=== PATIENT | male | born 1965 ===

== ENCOUNTER 2020-07-13 13:03 | Emergency (ER) | payer SELFPAY ==
--- NOTE | 2020-07-13 13:45 | Event Note ---
ED Screening Note ED Screening Note: CO WEAKNESS/FATIGUE/WEIGHT LOSS SINCE HAVING COVID IN MAY NO CP NO SOB PMH HTN This initial assessment/diagnostic orders/clinical plan/treatment(s) is/are subject to change based on patients health status, clinical progression and re- assessment by fellow clinical providers in the ED. Further treatment and workup at subsequent clinical providers discretion. Patient/guardian urged not to elope from the ED as their condition may be serious if not clinically assessed and managed. Initial orders include: UA LABS
[2020-07-13 14:41] LABS: Hematocrit 34.6 % (35.5-45.6); Hemoglobin 11.6 gm/dl (11.8-15.2); Mean Corpuscular HGB Conc 34 % (32-34); Mean Corpuscular Volume 85 fl (84-94); Platelet Count 331 K/mm3 (140-440); Red Blood Count 4.07 M/mm3 (3.65-5.03); Red Cell Distribution Width 40.1 % (13.2-15.2)
[2020-07-13 14:55] LABS: Bilirubin,Urine NEG (Negative); Blood,Urine NEG (Negative); Color,Urine Yellow (Yellow); Mucus,Urine 1+ /HPF; Protein,Urine <15 mg/dL mg/dL (Negative)
[2020-07-13 15:00] LABS: Alanine Aminotransferase 25 units/L (7-56); Albumin 4.6 g/dL (3.9-5); BUN/Creatinine Ratio 8; Bilirubin,Direct 0.4 mg/dL (0-0.2); Blood Urea Nitrogen 8 mg/dL (9-20); Calcium 9.5 mg/dL (8.4-10.2); Hemolysis Index 10
--- NOTE | 2020-07-13 15:37 | XRay Report ---
CHEST 2 VIEWS INDICATION: COUGH. COMPARISON: None. FINDINGS: Support devices: None. Heart: Within normal limits. Lungs/Pleura: No acute air space or interstitial disease. No significant pleural effusion. IMPRESSION: No acute findings. Signer Name: Navarro Adams MD Signed: 07/13/2020 3:32 PM Workstation Name: [id number]
[2020-07-13 16:43] LABS: Total Cells Counted 100
[2020-07-13 16:44] LABS: Anisocytosis 3+; Giant Platelets Rare; Large Platelets Rare
[2020-07-13 16:45] LABS: Ovalocytes 2+; Poikilocytosis 2+; Tear Drop Cells Few
[2020-07-13 16:50] LABS: Helmet Cells Rare; Platelet Estimate Consistent w Auto
[2020-07-13 19:42] VITALS: BP 148/92
--- NOTE | 2020-07-13 19:56 | Emergency Department Report ---
ED General Adult HPI - General Chief complaint: Weakness Stated complaint: IRRITABILITY POST COVID Time Seen by Provider: 07/13/20 13:45 Source: patient Mode of arrival: Ambulatory Limitations: No Limitations - History of Present Illness Initial comments: Patient is a 54-year-old male presents emergency room with complaints of decreased appetite and generalized weakness that has been occurring for over 2 weeks. He states he has had these symptoms since having Covid in May 2020, he states that he was not hospitalized at that time and was able to recover without intervention. Patient states he has lost approximately 20 pounds in a month. He states that he just does not have appetite to eat. He states he has intermittent episodes of constipation but states he is still able to have a bowel movement and passed gas. He states he has some mild left upper quadrant discomfort. He is requesting something to help him out appetite. He denies any nausea, vomiting, diarrhea, fever, chest pain, shortness of breath. He has a past medical history of hypertension. No allergies to medications. Patient states he has not had a colonoscopy or endoscopy. He denies any family history of GI cancer. - Related Data Previous Rx's Medication Instructions Recorded Last Taken Type Ondansetron [Zofran Odt] 4 mg PO Q8HR PRN #10 tab.rapdis 07/13/20 Unknown Rx Sucralfate [Carafate] 1 gm PO ACHS 7 Days #21 tablet 07/13/20 Unknown Rx Allergies Allergy/AdvReac Type Severity Reaction Status Date / Time No Known Allergies Allergy Verified 07/13/20 13:48 ED Review of Systems ROS: Stated complaint: IRRITABILITY POST COVID Other details as noted in HPI Comment: All other systems reviewed and negative ED Past Medical Hx - Past Medical History Hx Hypertension: Yes - Surgical History Past Surgical History?: No - Social History Smoking Status: Current Every Day Smoker Substance Use Type: None - Medications Home Medications: Home Medications Medication Instructions Recorded Confirmed Last Taken Type Ondansetron [Zofran Odt] 4 mg PO Q8HR PRN #10 tab.rapdis 07/13/20 Unknown Rx Sucralfate [Carafate] 1 gm PO ACHS 7 Days #21 tablet 07/13/20 Unknown Rx ED Physical Exam - General Limitations: No Limitations General appearance: alert, in no apparent distress - Head Head exam: Present: atraumatic, normocephalic - Eye Eye exam: Present: normal appearance. Absent: scleral icterus - ENT ENT exam: Present: mucous membranes moist - Respiratory Respiratory exam: Present: normal lung sounds bilaterally. Absent: respiratory distress, wheezes, rales, rhonchi, stridor, chest wall tenderness, accessory muscle use, decreased breath sounds, prolonged expiratory - Cardiovascular Cardiovascular Exam: Present: regular rate, normal rhythm, normal heart sounds. Absent: systolic murmur, diastolic murmur, rubs, gallop - GI/Abdominal GI/Abdominal exam: Present: soft, normal bowel sounds. Absent: distended, tenderness, guarding, rebound, rigid - Neurological Exam Neurological exam: Present: alert, oriented X3 - Psychiatric Psychiatric exam: Present: normal affect, normal mood - Skin Skin exam: Present: warm, dry, intact ED Course Vital Signs 07/13/20 07/13/20 13:44 19:41 Temperature 98.2 F 98.2 F Pulse Rate 76 78 Respiratory 18 18 Rate Blood Pressure 165/93 Blood Pressure 148/92 [Right] O2 Sat by Pulse 99 99 Oximetry ED Medical Decision Making - Lab Data Result diagrams: 07/13/20 13:58 07/13/20 13:58 Lab Results 07/13/20 07/13/20 07/13/20 Range/Units 13:58 13:58 13:58 WBC 7.5 (4.5-11.0) K/mm3 RBC 4.07 (3.65-5.03) M/mm3 Hgb 11.6 L (11.8-15.2) gm/dl Hct 34.6 L (35.5-45.6) % MCV 85 (84-94) fl MCH 29 (28-32) pg MCHC 34 (32-34) % RDW 40.1 H (13.2-15.2) % Plt Count 331 (140-440) K/mm3 Add Manual Diff Complete Total Counted 100 Seg Neuts % (Manual) 59.0 (40.0-70.0) % Lymphocytes % (Manual) 33.0 (13.4-35.0) % Monocytes % (Manual) 7.0 (0.0-7.3) % Eosinophils % (Manual) 1.0 (0.0-4.3) % Nucleated RBC % Not Reportable Seg Neutrophils # Man 4.4 (1.8-7.7) K/mm3 Band Neutrophils # 0.0 K/mm3 Lymphocytes # (Manual) 2.5 (1.2-5.4) K/mm3 Abs React Lymphs (Man) 0.0 K/mm3 Monocytes # (Manual) 0.5 (0.0-0.8) K/mm3 Eosinophils # (Manual) 0.1 (0.0-0.4) K/mm3 Basophils # (Manual) 0.0 (0.0-0.1) K/mm3 Metamyelocytes # 0.0 K/mm3 Myelocytes # 0.0 K/mm3 Promyelocytes # 0.0 K/mm3 Blast Cells # 0.0 K/mm3 WBC Morphology Not Reportable Hypersegmented Neuts Not Reportable Hyposegmented Neuts Not Reportable Hypogranular Neuts Not Reportable Smudge Cells Not Reportable Toxic Granulation Not Reportable Toxic Vacuolation Not Reportable Dohle Bodies Not Reportable Pelger-Huet Anomaly Not Reportable José Miguel Rods Not Reportable Platelet Estimate Consistent w auto Clumped Platelets Not Reportable Plt Clumps, EDTA Not Reportable Large Platelets Rare Giant Platelets Rare Platelet Satelliting Not Reportable Plt Morphology Comment Not Reportable RBC Morphology Not Reportable Dimorphic RBCs Not Reportable Polychromasia Not Reportable Hypochromasia Not Reportable Poikilocytosis 2+ Anisocytosis 3+ Microcytosis Not Reportable Macrocytosis Not Reportable Spherocytes Not Reportable Pappenheimer Bodies Not Reportable Sickle Cells Not Reportable Target Cells Not Reportable Tear Drop Cells Few Ovalocytes 2+ Helmet Cells Rare Rocha-[place] Bodies Not Reportable [place] Rings Not Reportable Rony Cells Not Reportable Bite Cells Not Reportable Crenated Cell Not Reportable Elliptocytes Not Reportable Acanthocytes (Spur) Not Reportable Rouleaux Not Reportable Hemoglobin C Crystals Not Reportable Schistocytes Not Reportable Malaria parasites Not Reportable Justus Bodies Not Reportable Hem Pathologist Commnt No Sodium 140 (137-145) mmol/L Potassium 4.2 (3.6-5.0) mmol/L Chloride 102.7 (98-107) mmol/L Carbon Dioxide 27 (22-30) mmol/L Anion Gap 15 mmol/L BUN 8 L (9-20) mg/dL Creatinine 1.0 (0.8-1.3) mg/dL Estimated GFR > 60 ml/min BUN/Creatinine Ratio 8 % Glucose 103 H (75-100) mg/dL Calcium 9.5 (8.4-10.2) mg/dL Total Bilirubin 1.40 H (0.1-1.2) mg/dL Direct Bilirubin 0.4 H (0-0.2) mg/dL Indirect Bilirubin 1.0 mg/dL AST 26 (5-40) units/L ALT 25 (7-56) units/L Alkaline Phosphatase 72 (35-129) units/L Troponin T < 0.010 (0.00-0.029) ng/mL Total Protein 7.2 (6.3-8.2) g/dL Albumin 4.6 (3.9-5) g/dL Albumin/Globulin Ratio 1.8 % Lipase 26 (13-60) units/L Urine Color (Yellow) Urine Turbidity (Clear) Urine pH (5.0-7.0) Ur Specific [place] (1.003-1.030) Urine Protein (Negative) mg/dL Urine Glucose (UA) (Negative) mg/dL Urine Ketones (Negative) mg/dL Urine Blood (Negative) Urine Nitrite (Negative) Urine Bilirubin (Negative) Urine Urobilinogen (<2.0) mg/dL Ur Leukocyte Esterase (Negative) Urine WBC (Auto) (0.0-6.0) /HPF Urine RBC (Auto) (0.0-6.0) /HPF Urine Mucus /HPF 07/13/20 07/13/20 Range/Units 16:57 Unknown WBC (4.5-11.0) K/mm3 RBC (3.65-5.03) M/mm3 Hgb (11.8-15.2) gm/dl Hct (35.5-45.6) % MCV (84-94) fl MCH (28-32) pg MCHC (32-34) % RDW (13.2-15.2) % Plt Count (140-440) K/mm3 Add Manual Diff Total Counted Seg Neuts % (Manual) (40.0-70.0) % Lymphocytes % (Manual) (13.4-35.0) % Monocytes % (Manual) (0.0-7.3) % Eosinophils % (Manual) (0.0-4.3) % Nucleated RBC % Seg Neutrophils # Man (1.8-7.7) K/mm3 Band Neutrophils # K/mm3 Lymphocytes # (Manual) (1.2-5.4) K/mm3 Abs React Lymphs (Man) K/mm3 Monocytes # (Manual) (0.0-0.8) K/mm3 Eosinophils # (Manual) (0.0-0.4) K/mm3 Basophils # (Manual) (0.0-0.1) K/mm3 Metamyelocytes # K/mm3 Myelocytes # K/mm3 Promyelocytes # K/mm3 Blast Cells # K/mm3 WBC Morphology Hypersegmented Neuts Hyposegmented Neuts Hypogranular Neuts Smudge Cells Toxic Granulation Toxic Vacuolation Dohle Bodies Pelger-Huet Anomaly José Miguel Rods Platelet Estimate Clumped Platelets Plt Clumps, EDTA Large Platelets Giant Platelets Platelet Satelliting Plt Morphology Comment RBC Morphology Dimorphic RBCs Polychromasia Hypochromasia Poikilocytosis Anisocytosis Microcytosis Macrocytosis Spherocytes Pappenheimer Bodies Sickle Cells Target Cells Tear Drop Cells Ovalocytes Helmet Cells Rocha-[place] Bodies [place] Rings Rony Cells Bite Cells Crenated Cell Elliptocytes Acanthocytes (Spur) Rouleaux Hemoglobin C Crystals Schistocytes Malaria parasites Justus Bodies Hem Pathologist Commnt Sodium (137-145) mmol/L Potassium (3.6-5.0) mmol/L Chloride (98-107) mmol/L Carbon Dioxide (22-30) mmol/L Anion Gap mmol/L BUN (9-20) mg/dL Creatinine (0.8-1.3) mg/dL Estimated GFR ml/min BUN/Creatinine Ratio % Glucose (75-100) mg/dL Calcium (8.4-10.2) mg/dL Total Bilirubin (0.1-1.2) mg/dL Direct Bilirubin (0-0.2) mg/dL Indirect Bilirubin mg/dL AST (5-40) units/L ALT (7-56) units/L Alkaline Phosphatase (35-129) units/L Troponin T < 0.010 (0.00-0.029) ng/mL Total Protein (6.3-8.2) g/dL Albumin (3.9-5) g/dL Albumin/Globulin Ratio % Lipase (13-60) units/L Urine Color Yellow (Yellow) Urine Turbidity Clear (Clear) Urine pH 6.0 (5.0-7.0) Ur Specific [place] 1.020 (1.003-1.030) Urine Protein <15 mg/dl (Negative) mg/dL Urine Glucose (UA) Neg (Negative) mg/dL Urine Ketones Tr (Negative) mg/dL Urine Blood Neg (Negative) Urine Nitrite Neg (Negative) Urine Bilirubin Neg (Negative) Urine Urobilinogen 4.0 (<2.0) mg/dL Ur Leukocyte Esterase Neg (Negative) Urine WBC (Auto) 1.0 (0.0-6.0) /HPF Urine RBC (Auto) 2.0 (0.0-6.0) /HPF Urine Mucus 1+ /HPF - Radiology Data Radiology results: report reviewed Ordering Physician: KYLE FOX Date of Service: 07/13/20 Procedure(s): XR chest routine 2V Accession Number(s): [id number] cc: KYLE FOX Fluoro Time In Minutes: CHEST 2 VIEWS INDICATION: COUGH. COMPARISON: None. FINDINGS: Support devices: None. Heart: Within normal limits. Lungs/Pleura: No acute air space or interstitial disease. No significant pleural effusion. IMPRESSION: No acute findings. Signer Name: Navarro Adams MD Signed: 07/13/2020 3:32 PM Workstation Name: [id number] Transcribed By: LIZZETH Dictated By: Navarro Adams MD Electronically Authenticated By: Navarro Adams MD Signed Date/Time: 07/13/201531 DD/ 31 TD/TT: Print - Medical Decision Making Patient is a 54-year-old male presents emergency room with complaints of decreased appetite and generalized weakness that has been occurring for over 2 weeks. He states he has had these symptoms since having Covid in May 2020, he states that he was not hospitalized at that time and was able to recover without intervention. Patient states he has lost approximately 20 pounds in a month. He states that he just does not have appetite to eat. He states he has intermittent episodes of constipation but states he is still able to have a bowel movement and passed gas. He states he has some mild left upper quadrant discomfort. He is requesting something to help him out appetite. He denies any nausea, vomiting, diarrhea, fever, chest pain, shortness of breath. He has a past medical history of hypertension. No allergies to medications. Patient s geoffrey he has not had a colonoscopy or endoscopy. He denies any family history of GI cancer. vss. no abnormality on physical examination as documented in chart. Orders placed prior to my examination. Labs with mild elevation of indirect and direct bilirubin, otherwise LFTs are normal. troponin negative x2. UA is WNL. Patient has no abdominal tenderness on exam, no guarding, no rebound, rigidity, normal sounds, no peritoneal signs, no abdominal distention, no signs of jaundice or scleral icterus. Discussed the importance of GI follow- up with patient. Discussed very strict return precautions. Advised patient that he likely needs to have an outpatient endoscopy/colonoscopy, advised patien t that he should have had a screening colonoscopy at 49 years old and stressed the importance of follow-up. Patient given prescription for Coumadin Zofran. Advised patient Please take medication as prescribed as needed. Increase your water intake. Follow-up with a GI doctor. It is very important that you follow-up with a GI doctor as you likely need endoscopy and colonoscopy. Follow-up with your primary care doctor. Return to emergency room for new or worsening symptoms. Critical care attestation.: If time is entered above; I have spent that time in minutes in the direct care of this critically ill patient, excluding procedure time. ED Disposition Clinical Impression: Decreased appetite, Generalized weakness, Elevated bilirubin, Weight loss Disposition: DC-01 TO HOME OR SELFCARE Is pt being admited?: No Does the pt Need Aspirin: No Condition: Stable Additional Instructions: Please take medication as prescribed as needed. Increase your water intake. Follow-up with a GI doctor. It is very important that you follow-up with a GI doctor as you likely need endoscopy and colonoscopy. Follow-up with your primary care doctor. Return to emergency room for new or worsening symptoms. Prescriptions: Sucralfate [Carafate] 1 gm PO ACHS 7 Days #21 tablet Ondansetron [Zofran Odt] 4 mg PO Q8HR PRN #10 tab.rapdis PRN Reason: nausea Referrals: DONNIE HI MD [Primary Care Provider] - 2-3 Days [facility] [Provider Group] - 2-3 Days [facility], [LAB/CONTRACT] - 2-3 Days [facility] [Outside] - 2-3 Days Time of Disposition: 19:54 Print Language: DANISH
== END 2020-07-13 20:06 | disposition home or self-care (01) ==
LOC: ED 13:03
DX: R63.0 Anorexia (principal); I10 Essential (primary) hypertension; F17.200 Nicotine dependence, unspecified, uncomplicated; Z79.899 Other long term (current) drug therapy
CPT/HCPCS: 36415; 71046; 80048; 80076; 81001; 83690; 84484; 85007; 85025; 99283

== ENCOUNTER 2021-12-16 19:55 | Emergency (ER) | payer SELFPAY ==
[2021-12-16 20:16] VITALS: BP 119/68
--- NOTE | 2021-12-16 20:54 | XRay Report ---
Right shoulder-3 views INDICATION: Injury. COMPARISON: None available. IMPRESSION: No acute osseous abnormality. Normal alignment. No significant DJD. Soft tissues are u nremarkable. Signer Name: Patrick Sawyer MD Signed: 12/16/2021 8:49 PM Workstation Name: [id number]
[2021-12-16] MEDS ORDERED: CYCLOBENZAPRINE 10 MG TAB PO ONE (22:36)
[2021-12-16] MEDS ORDERED: IBUPROFEN 800 MG TAB PO ONE (22:36)
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
== END 2021-12-16 23:34 | disposition home or self-care (01) ==
LOC: ED 19:55
DX: S49.91XA Unspecified injury of right shoulder and upper arm, initial encounter (principal); I10 Essential (primary) hypertension; F17.200 Nicotine dependence, unspecified, uncomplicated; X58.XXXA Exposure to other specified factors, initial encounter; Y93.89 Activity, other specified; Y92.89 Other specified places as the place of occurrence of the external cause; Y99.8 Other external cause status
CPT/HCPCS: 99282; 99283